=== PATIENT | male | born 1955 | race Caucasian/White ===

== ENCOUNTER 2019-02-26 09:39 | Emergency (ER) | payer OTHER ==
[2019-02-26] MEDS ORDERED: Oxymetazoline 0.05% Nasal Spray 30 ML Bottle ONE (09:55)
[2019-02-26] MEDS ORDERED: Oxymetazoline 0.05% Nasal Spray 30 ML Bottle NAS ONE (10:00)
--- NOTE | 2019-02-26 11:30 | EDM.PDOC ---
ED HPI GENERAL MEDICAL PROBLEM - General Chief Complaint: ENT Problem Stated Complaint: NOSE BLEED Time Seen by Provider: 02/26/19 09:49 Source of Information: Reports: Patient, Family History Limitations: Reports: No Limitations - History of Present Illness INITIAL COMMENTS - FREE TEXT/NARRATIVE: The patient presents with a nose bleed. This first started this morning at 5am. It stopped right away and then later when hiking it started again. They got it stopped and went to a different trail in [place] and is started again. They went back to their hotel room and it was much worse. He is on xarelto and since he started that he has had nose bleeds. It is usually from the right but now it is coming from both sides. Onset: Sudden Duration: Hour(s): Severity: Moderate Improves with: Reports: None Worsens with: Reports: None Associated Symptoms: Reports: No Other Symptoms - Related Data Allergies Allergy/AdvReac Type Severity Reaction Status Date / Time No Known Allergies Allergy Verified 02/26/19 10:20 Past Medical History HEENT History: Reports: Epistaxis Cardiovascular History: Reports: Afib, Hypertension Respiratory History: Reports: None Genitourinary History: Reports: None Musculoskeletal History: Reports: None Neurological History: Reports: None Psychiatric History: Reports: None Endocrine/Metabolic History: Reports: None Hematologic History: Reports: Anticoagulation Therapy Immunologic History: Reports: None Oncologic (Cancer) History: Reports: None Dermatologic History: Reports: None - Infectious Disease History Infectious Disease History: Reports: None - Past Surgical History Head Surgeries/Procedures: Reports: None Other GI Surgeries/Procedures: "hemorrhoid operation 20 years ago." Social & Family History - Tobacco Use Smoking Status *Q: Never Smoker - Caffeine Use Caffeine Use: Reports: None - Recreational Drug Use Recreational Drug Use: Yes Recreational Drug Type: Reports: Marijuana/Hashish ED ROS ENT - Review of Systems Review Of Systems: See Below Constitutional: Reports: No Symptoms HEENT: Reports: Nosebleed Respiratory: Reports: No Symptoms Cardiovascular: Reports: No Symptoms Endocrine: Reports: No Symptoms GI/Abdominal: Reports: No Symptoms : Reports: No Symptoms Musculoskeletal: Reports: No Symptoms ED EXAM, ENT - Physical Exam Exam: See Below Exam Limited By: No Limitations General Appearance: Alert, No Apparent Distress Ears: Normal External Exam Nose: Active Bleeding (from right nostril to the septum and outer wall) ED ENT PROCEDURES - Epistaxis Procedure Indication: Epistaxis Recent anticoagulants/antiplatlets: Yes Uncontrolled HTN: No Recent septal/nasal surgery: No Site of bleeding: Right Nare Clearing of clots: Suction Topical Meds: Phenylephrine Ice pack to area: No Chemical cautery: Silver Nitrate Topical Course - Vital Signs Last Recorded V/S: Last Vital Signs Temp Pulse 104 H 02/26/19 10:01 Resp 20 02/26/19 10:01 BP 134/81 02/26/19 10:01 Pulse Ox 99 02/26/19 10:01 - Orders/Labs/Meds Meds: Medications Discontinued Medications Generic Name Dose Route Start Last Admin Trade Name Anne PRN Reason Stop Dose Admin Oxymetazoline HCl Confirm 02/26/19 09:55 Nasal Decongestant [place] Administered 02/26/19 09:56 Dose 30 ml .ROUTE .STK-MED ONE - Re-Assessments/Exams Free Text/Narrative Re-Assessment/Exam: 02/26/19 11:26 I gave afrin and cauterized the bleed. It appears to have stopped. I will have him put some antibiotic ointment in each nostril for a couple of days. Departure - Departure Time of Disposition: 11:30 Disposition: Home, Self-Care 01 Condition: Good Clinical Impression: Epistaxis - Discharge Information *PRESCRIPTION DRUG MONITORING PROGRAM REVIEWED*: Not Applicable *COPY OF PRESCRIPTION DRUG MONITORING REPORT IN PATIENT [place]: Not Applicable Referrals: PCP,Not In Area [Primary Care Provider] - Additional Instructions: Put antibiotic ointment of petroleum jelly in each nostril or use ayr to keep your nose moist. You can also greens picker some nasalcease. You can get it over the counter. That will help stop nose bleeds. Follow up with an ENT when you get home.
== END 2019-02-26 11:40 | disposition home or self-care (01) ==
LOC: JD.ED 09:39
DX: R04.0 Epistaxis (principal); I48.91 Unspecified atrial fibrillation; I10 Essential (primary) hypertension; Z79.01 Long term (current) use of anticoagulants
CPT/HCPCS: 30901; 99282; 99283